=== PATIENT | male | born 1990 | race Caucasian/White ===

== ENCOUNTER 2017-05-26 21:12 | Emergency (ER) | payer SELFPAY ==
[~2017-05-26] VITALS: Ht 188 cm; Wt 119.2 kg
[2017-05-26 21:15] VITALS: TEMP 36.7; Ht 188 cm; Wt 119.2 kg
[2017-05-26] MEDS ORDERED: PENICILLIN HOME PACK 250MG (4)BTL PO STA (21:25)
[2017-05-26] MEDS ORDERED: KETOROLAC TROMETHAMINE 60 MG/2 ML VIAL IM STA (21:25)
[2017-05-26] MEDS ORDERED: OXYCODONE IR HOME PACK PO ONE (21:30)
[2017-05-26] MEDS ORDERED: PENI-82 PO (21:33)
--- NOTE | 2017-05-26 21:35 | EMERGENCY ROOM VISIT NOTE ---
ED Visit Note First contact with patient: 21:18 CHIEF COMPLAINT: "ongoing dental issues" HISTORY OF PRESENT ILLNESS: This 26-year-old male patient presented to the emergency department, ambulatory, with a progressive toothache for past 6 months. The patient states for the past few weeks, the pain has been worsening , but became unbearable today. The patient believes it is coming from the left lower molar which is cracked in half, and the right lower molar which is also fractured. The pain is now steady and severe and radiates to the face, worse on the left side. The patient does have a dentist appointment set up for tomorrow morning. They rate their pain a 9/10 and the aspirin and Aleve they have been taking has not relieved the pain. He does report some mild facial swelling on the left and states he has been having intermittent chills with a temperature of 100F at one point today. The patient denies any discharge from the mouth. REVIEW OF SYSTEMS: A 6 system review of systems was completed with positives and pertinent negatives listed in the HPI. ALLERGIES: None MEDICATIONS: None PMH: None SOCIAL HISTORY: The patient lives locally with family. He denies drug, alcohol use. He does admit to smoking approximately one pack cigarettes every day and a half. PHYSICAL EXAM: Vitals are noted on the nurse's note and reviewed by myself. Vital signs stable. Temperature 36.7C orally. GENERAL: This is a 26-year-old white male, in no acute distress, nondiaphoretic, well-developed well- nourished. Mouth: The #18, 19, and 31 teeth are very carious and the gum is swollen and tender around them, without any discharge or signs of an abscess. The remainder of the pharynx and tonsils are without erythema, edema, or exudate. The airway is patent. There is no facial swelling, cervical or submandibular lymphadenopathy. The patient appears uncomfortable and in pain. The patient has overall poor dental hygiene. EARS: External auditory canals clear, tympanic membranes pearly hale without erythema or effusion bilaterally. ED COURSE: The patient was seen and evaluated as above. He was given a dose of Toradol here in the emergency department for pain relief. PDMP was reviewed and no history noted. He was provided with home packs of OxyIR and penicillin. The patient is encouraged to keep his dental appointment which he has scheduled for tomorrow morning. Discharge instructions reviewed, and the patient was discharged home in good condition. I attest that I have personally reviewed the patient's current medication list. Patient was found to have normal blood pressure on screening and does not require follow-up. DIFFERENTIAL DIAGNOSIS: Odontalgia, periapical abscess, facial cellulitis, acute sinusitis, mandibular fracture, dental fracture, malignancy, and others DIAGNOSIS: Odontalgia Current/Historical Medications Scheduled Penicillin V Potassium (Veetids), 500 MG PO QID Vital Signs Date Time Temp Pulse Resp B/P (MAP) Pulse Ox O2 Delivery O2 Flow Rate FiO2 05/26/17 21:15 36.7 77 16 164/103 98 Room Air Departure Information Impression Primary Impression: Odontalgia Dispostion Home / Self-Care Condition GOOD Prescriptions Penicillin V Potassium (Veetids) 500 Mg Tab 500 MG PO QID for 10 Days, #40 TAB Prov: Viviana Flores PA-C 05/26/17 Referrals No Doctor, Assigned (PCP) Patient Instructions ED Abscess Dental, [facility] Additional Instructions You have been treated in the Emergency Department for Dental Pain. You have been prescribed OxyIR to be used for pain control. This is a narcotic medication. You cannot drive or consume alcohol while on this medicine. This medicine should only be used for pain that cannot be controlled with over-the- counter pain medicines. You were prescribed Pen-V K to be taken as directed. This is an antibiotic. All antibiotics have the potential to cause diarrhea. Stop this medication and contact a medical provider if you were to develop any significant adverse side effects including: wheezing, shortness of breath, passing out, vomiting, or a diffuse rash. Always take antibiotics as directed and COMPLETE the ENTIRE course regardless of the improvement of your symptoms. NOTE: You were given 250mg pills as a homepack in the ED with instructions to take TWO pills 4 times daily. Your prescription is for 500mg tablets, so you should only take ONE tablet 4 times daily of these. For pain control, you can use the following [id number] medicines (if >12 yo): Ibuprofen(Motrin, Advil) may be used for fever or pain. Use 600mg every six hours as needed. Take with food. Avoid using more than 2400mg in a 24 hour period. Do not use 2400mg per day for more than three consecutive days without physician direction. Prolonged inappropriate use can lead to stomach upset or ulcers. (AND/OR) Acetaminophen(Tylenol) may be used for fever or pain. Use 1000mg every six hours as needed. Avoid using more than 3000mg in a 24 hour period. *Alternate these medications every 3-4 hours. Refrain from smoking cigarettes or using chewing tobacco until you have been evaluated by your dentist. Keeping beverages lukewarm and consuming soft foods can decrease your pain. Warm compresses over the affected area may offer some relief. You MUST seek evaluation of your dental pain by a dentist following your visit to the Emergency Department. The Emergency Department is not capable of treating dental issues long-term. You should call your dentist as soon as possible to make an appointment for evaluation of your dental pain. Be sure to see your dentist at your appointment tomorrow. Return to the emergency department if you develop the following symptoms despite treatment course outlined above: fever, intractable pain, increased redness, swelling, or purulent discharge.
[2017-05-26] MEDS ORDERED: NAPR1TAB9 PO (21:42)
[2017-05-26 21:49] VITALS: BP 163/92; PULSE 62; O2SAT 98
== END 2017-05-26 21:59 | disposition home or self-care (01) ==
LOC: C.EDB 21:14 → C.EDD 21:59
DX: K02.9 Dental caries, unspecified (principal); K03.81 Cracked tooth; F17.210 Nicotine dependence, cigarettes, uncomplicated